=== PATIENT | female | born 1955 | race Caucasian/White ===

== ENCOUNTER 2022-08-03 14:43 | Emergency (ER) | payer BC ==
[2022-08-03 15:01] VITALS: BP 175/104; PULSE 108
[2022-08-03] MEDS ORDERED: Lidocaine 2% Viscous Solution 100 ML Bottle PO ONE (15:26)
[2022-08-03] MEDS ORDERED: Lidocaine 2% Viscous Solution 15 ML UD ONE ×2 (15:40→15:42)
== END 2022-08-03 15:51 | disposition home or self-care (01) ==
LOC: JP.ED 14:43
DX: T20.10XA Burn of first degree of head, face, and neck, unspecified site, initial encounter (principal); I10 Essential (primary) hypertension; E11.9 Type 2 diabetes mellitus without complications; Z79.82 Long term (current) use of aspirin; Z79.899 Other long term (current) drug therapy; Z79.84 Long term (current) use of oral hypoglycemic drugs; X00.0XXA Exposure to flames in uncontrolled fire in building or structure, initial encounter
CPT/HCPCS: 99283; A9270

== ENCOUNTER 2025-09-24 21:50 | Emergency (ER) | payer MEDICARE, BC ==
[2025-09-24 22:34] LABS: BASOPHILS ABSOLUTE AUTO 0.05 K/uL (0.00-0.10); BASOPHILS PERCENT AUTO 0.4 % (0.1-1.3); EOSINOPHILS ABSOLUTE AUTO 0.08 K/uL (0.00-0.40); EOSINOPHILS PERCENT AUTO 0.6 % (0.0-5.4); IMMATURE GRAN ABSOLUTE AUTO 0.06 K/uL (0.00-0.23); IMMATURE GRAN PERCENT AUTO 0.5 % (0.0-0.7); LYMPHOCYTES ABSOLUTE AUTO 1.35 K/uL (0.8-3.3); LYMPHOCYTES PERCENT AUTO 10.4 % (11.4-47.7); MONOCYTES ABSOLUTE AUTO 0.74 K/uL (0.20-0.90); MONOCYTES PERCENT AUTO 5.7 % (3.3-12.6); NEUTROPHILS ABSOLUTE AUTO 10.75 K/uL (1.0-7.6); NEUTROPHILS PERCENT AUTO 82.4 % (40.0-78.1); PLATELET COUNT,PLT 326 K/uL (130-375); RED BLOOD CELL COUNT 4.78 M/uL (3.77-5.24); WHITE BLOOD CELL COUNT,WBC 13.0 K/uL (3.2-11.0)
[2025-09-24 22:48] LABS: INR 1.0
[2025-09-24 22:54] LABS: A/G RATIO 1.1 (1.2-2.2); ALANINE AMINOTRANSFERASE,ALT 22 U/L (12-78); ASPARTATE AMNIOTRANSFERASE,AST 19 U/L (15-37); BILIRUBIN TOTAL 1.0 mg/dL (0.2-1.0); BLOOD UREA NITROGEN,BUN 22 mg/dL (7-18); CARBON DIOXIDE,CO2 26 mmol/L (21-32); CHLORIDE,CL 92 mmol/L (100-108); CREATININE 0.9 mg/dL (0.6-1.0); EST CRCL DRUG DOSING (CG) 53.83 mL/min; ESTIMATED GFR 70 mL/min (>60); GLUCOSE RANDOM 138 mg/dL (74-106); POTASSIUM,K 3.3 mmol/L (3.6-5.2); PROTEIN TOTAL,TP 7.8 g/dL (6.4-8.2); SODIUM,NA 131 mmol/L (140-148)
[2025-09-24 23:06] VITALS: BP 223/112; PULSE 97
[2025-09-25 00:26] LABS: BASOPHILS ABSOLUTE AUTO 0.08 K/uL (0.00-0.10); BASOPHILS PERCENT AUTO 0.5 % (0.1-1.3); EOSINOPHILS ABSOLUTE AUTO 0.13 K/uL (0.00-0.40); EOSINOPHILS PERCENT AUTO 0.8 % (0.0-5.4); IMMATURE GRAN ABSOLUTE AUTO 0.09 K/uL (0.00-0.23); IMMATURE GRAN PERCENT AUTO 0.6 % (0.0-0.7); LYMPHOCYTES ABSOLUTE AUTO 1.60 K/uL (0.8-3.3); LYMPHOCYTES PERCENT AUTO 10.0 % (11.4-47.7); MONOCYTES ABSOLUTE AUTO 1.10 K/uL (0.20-0.90); MONOCYTES PERCENT AUTO 6.9 % (3.3-12.6); NEUTROPHILS ABSOLUTE AUTO 13.05 K/uL (1.0-7.6); NEUTROPHILS PERCENT AUTO 81.2 % (40.0-78.1); PLATELET COUNT,PLT 313 K/uL (130-375); RED BLOOD CELL COUNT 4.88 M/uL (3.77-5.24); WHITE BLOOD CELL COUNT,WBC 16.1 K/uL (3.2-11.0)
[2025-09-25] MEDS: Sodium Chloride 0.9% 10 ML Syringe FLUSH PRN (01:08)
[2025-09-25] MEDS: Iopamidol 612 MG/ML 100 ML Bottle IV SCH (01:08)
== END 2025-09-25 02:00 | disposition home or self-care (01) ==
LOC: JP.ED 21:50
DX: K52.9 Noninfective gastroenteritis and colitis, unspecified (principal); I10 Essential (primary) hypertension; E11.9 Type 2 diabetes mellitus without complications; E86.0 Dehydration; Z79.82 Long term (current) use of aspirin; Z79.84 Long term (current) use of oral hypoglycemic drugs; Z79.899 Other long term (current) drug therapy
CPT/HCPCS: 36415; 74177; 80053; 85025; 85610; 96360; 99284; A9270; J7030; Q9967